=== PATIENT | male | born 1955 | race Hispanic/Latino ===

== ENCOUNTER → 2017-02-11 | Outpatient (CLI) | payer OTHER ==
[2017-02-11 09:29] LABS: ALBUMIN 3.5 g/dL (3.5-5.0); BILIRUBIN,TOTAL 0.4 mg/dL (0.2-1.0); CREATININE 1.1 mg/dL (0.5-1.5); POTASSIUM 3.5 mmol/L (3.5-5.1); THYROID STIMULATING HORMONE 6.99 uIU/mL (0.36-3.74); TOTAL PROTEIN, SERUM 7.4 g/dL (6.0-8.3)
== END | disposition home or self-care (01) ==
LOC: LAB 08:35
PROVIDERS: ATTEND Family Medicine
DX: E03.9 Hypothyroidism, unspecified (principal)
CPT/HCPCS: 36415; 80053; 80061; 84439; 84443

== ENCOUNTER → 2020-07-19 | Outpatient (CLI) | payer OTHER ==
[2020-07-19 14:49] LABS: EOSINOPHILS % (AUTO) 3.6 % (0.0-8.0); HEMATOCRIT 41.1 % (42-54); LYMPHOCYTES % (AUTO) 42.9 % (21.0-51.0); MEAN CORPUSCULAR HEMOGLOBIN 28.2 pg (27.0-33.0); MEAN CORPUSCULAR HGB CONC 32.8 g/dL (32.0-36.0); MONOCYTES % (AUTO) 5.6 % (3.0-13.0); NEUTROPHILS % (AUTO) 46.7 % (40.0-77.0); PLATELET COUNT (AUTO) 280 K/uL (130-400); RED BLOOD CELL COUNT(AUTO) 4.78 MIL/uL (4.50-6.20); RED CELL DISTRIBUTION WIDTH 13.2 % (11.0-15.5); WHITE BLOOD COUNT (AUTO) 9.1 K/uL (4.8-10.8)
[2020-07-19 15:03] LABS: HEMOGLOBIN A1C 6.1 % (4.0-6.0)
[2020-07-19 16:19] LABS: ALBUMIN 3.7 g/dL (3.5-5.0); BILIRUBIN,TOTAL 0.4 mg/dL (0.2-1.0); CREATININE 0.9 mg/dL (0.5-1.5); POTASSIUM 3.6 mmol/L (3.5-5.1); TOTAL PROTEIN, SERUM 7.9 g/dL (6.0-8.3)
== END | disposition home or self-care (01) ==
LOC: RAH 13:48
PROVIDERS: ATTEND Family Medicine
DX: U07.1 COVID-19 (principal); I51.7 Cardiomegaly
CPT/HCPCS: 36415; 71046; 80053; 80061; 82306; 82607; 82627; 83036; 84443; 85025

== ENCOUNTER → 2020-12-19 | Outpatient (CLI) | payer OTHER | END | disposition home or self-care (01) | LOC: RAH 10:13 | PROVIDERS: ATTEND Internal Medicine Critical Care Medicine | DX: J47.9 Bronchiectasis, uncomplicated (principal); J84.112 Idiopathic pulmonary fibrosis | CPT/HCPCS: 71250 ==

== ENCOUNTER 2021-01-25 08:47 | Emergency (ER) | payer OTHER ==
[~2021-01-25] VITALS: Ht 182.9 cm; Wt 124.7 kg
[2021-01-25 08:49] VITALS: BP 150/85
[2021-01-25] MEDS ORDERED: IBUP-2070 PO (09:19)
[2021-01-25] MEDS ORDERED: OCTYL 2-CYANOACRYLATE 1 EACH TP ONE (09:20)
[2021-01-25] MEDS ORDERED: TETANUS/DIPHTHERIA TOXOID [ADULT] 0.5 ML VIAL IM SCH (09:30)
== END 2021-01-25 10:08 | disposition home or self-care (01) ==
LOC: EDH 08:47
DX: S61.411A Laceration without foreign body of right hand, initial encounter (principal); Z79.1 Long term (current) use of non-steroidal anti-inflammatories (NSAID); W18.39XA Other fall on same level, initial encounter; Y93.89 Activity, other specified; Y92.89 Other specified places as the place of occurrence of the external cause; Y99.8 Other external cause status
CPT/HCPCS: 12001; 73030; 73120; 90471; 90714

== ENCOUNTER → 2021-08-08 | Outpatient (CLI) | payer OTHER ==
[~2021-08-08] MED LIST: GADOTERATE MEGLUMINE 10 MMOL/20 ML VIAL IV ONE; IBUP-2070 PO
[2021-08-08 09:47] LABS: BASOPHILS % (AUTO) 0.9 % (0.0-5.0); EOSINOPHILS % (AUTO) 5.6 % (0.0-8.0); HEMATOCRIT 44.9 % (42-54); LYMPHOCYTES % (AUTO) 33.1 % (21.0-51.0); MEAN CORPUSCULAR HEMOGLOBIN 29.2 pg (27.0-33.0); MEAN CORPUSCULAR HGB CONC 33.2 g/dL (32.0-36.0); MEAN CORPUSCULAR VOLUME 87.9 fL (79-99); MONOCYTES % (AUTO) 5.7 % (3.0-13.0); NEUTROPHILS % (AUTO) 54.4 % (40.0-77.0); PLATELET COUNT (AUTO) 277 K/uL (130-400); RED BLOOD CELL COUNT(AUTO) 5.11 MIL/uL (4.50-6.20); RED CELL DISTRIBUTION WIDTH 12.9 % (11.0-15.5); WHITE BLOOD COUNT (AUTO) 8.8 K/uL (4.8-10.8)
[2021-08-08 09:58] LABS: HEMOGLOBIN A1C 5.7 % (4.0-6.0)
[2021-08-08 10:14] LABS: ALBUMIN 3.7 g/dL (3.5-5.0); BILIRUBIN,TOTAL 0.5 mg/dL (0.2-1.0); CREATININE 1.1 mg/dL (0.5-1.5); POTASSIUM 3.8 mmol/L (3.5-5.1); THYROID STIMULATING HORMONE 2.36 uIU/mL (0.36-3.74); TOTAL PROTEIN, SERUM 7.8 g/dL (6.0-8.3)
== END | disposition home or self-care (01) ==
LOC: RAH 08:20
PROVIDERS: ATTEND Family Medicine
DX: M47.812 Spondylosis without myelopathy or radiculopathy, cervical region (principal); M51.26 Other intervertebral disc displacement, lumbar region
CPT/HCPCS: 36415; 72156; 72157; 80053; 80061; 83036; 84439; 84443; 84481; 85025; 86376; A9575

== ENCOUNTER → 2021-08-09 | Outpatient (CLI) | payer OTHER | LOC: RAH 12:27 | PROVIDERS: ATTEND Family Medicine | DX: M47.816 Spondylosis without myelopathy or radiculopathy, lumbar region (principal); M46.96 Unspecified inflammatory spondylopathy, lumbar region; M48.061 Spinal stenosis, lumbar region without neurogenic claudication | CPT/HCPCS: 72158; A9575 ==

== ENCOUNTER → 2025-01-19 | Outpatient (CLI) | payer MEDICARE ==
[~2025-01-19] MED LIST changes: -GADOTERATE MEGLUMINE 10 MMOL/20 ML VIAL IV ONE; +IBUP-1492 PO; -IBUP-2070 PO
--- NOTE | 2025-01-19 16:44 | HMCSR ---
APPROVED REPORT EXAM: Two-dimensional and M-mode echocardiogram with Doppler and color Doppler. 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 2D Dimensions RVDd 4.4 cm LVEF(%) 50.0 (>50%) LVED Vol(simp.) 84.0 mL IVSd 0.9 (0.7-1.1cm) FS(%) 25 % LVES Vol(simp.) 40.0 mL LVDd 4.5 (3.8-5.6cm) LA (2D) 3.6 (1.6-4.0cm) LVEF(%, simp.) 53 % PWd 1.0 (0.7-1.1cm) Ao Root(2D) 3.7 (2.0-3.7cm) LA ESV INDEX (BP) 24.07 mL/m2 IVSs 1.3 cm LVOT diam 2.2 (1.8-2.4cm) LVDs 3.4 (2.5-4.0cm) IVC diam 1.0 cm PWs 1.1 cm Deformation Strain Apical 4 -16.0 % Apical 2 -12.5 % Apical 3 -19.6 % Global Strain -16.0 % M-Mode Dimensions LA (MM) 4.1 (1.6-4.0cm) Ao Root(MM) 3.6 (2.0-3.7cm) Aortic Valve AoV Vmax 1.7 m/s Ao Peak GR 11.6 mmHg LVOT Vmax 0.9 m/s AoV VTI 0.3 m Ao Mean GR 6.3 mmHg LVOT VTI 0.15 m FREDRICK (VMAX) 2.07 cm2 FREDRICK (VTI) 2.0 cm2 Mitral Valve MV E Vmax 67.6 cm/s DECEL Time 216 ms MV A Vmax 100.0 cm/s P 1/2 T 50 ms E/A ratio 0.7 MVA (PHT) 4.5 cm2 TDI E/E' Medial 10.9 E/E' Lateral 9.0 Medial E' Peak V 6.21 cm/s Lateral E' Peak V 7.48 cm/s Pulmonary Valve PV Vmax 1.4 m/s PV VTI 0.14 m PV Mean GR 3.2 mmHg PV Peak GR 7.7 mmHg Tricuspid Valve TR Vmax 3.8 m/s RAP (EST) 3 mmHg RVSP 63.7 mmHg TR Peak GR 60.7 mmHg Left Ventricle The left ventricle is normal size. There is normal left ventricular wall thickness. LVEF is 55-60%. Stage I diastolic dysfunction. Right Ventricle The right ventricle is mildly dilated. The right ventricular systolic function is normal. Atria The left atrium size is normal. The right atrium size is normal. Aortic Valve Aortic valve is trileaflet and opens well. No aortic regurgitation is present. There is no aortic valvular stenosis. Mitral Valve The mitral valve is mildly thickened There is mild mitral valve regurgitation noted. There is no mitral valve stenosis. Tricuspid Valve The tricuspid valve is normal in structure. There is mild tricuspid valve regurgitation noted by color Doppler. RVSP 64.0mHg. Pulmonic Valve Pulmonic valve is not well visualized. There is no pulmonic valvular regurgitation. Great Vessels The aortic root is normal in size. The IVC is normal in size and collapses >50% with inspiration. Pericardium There is no pericardial effusion. Other Information Quality : Adequate Conclusion The left ventricle is normal size. There is normal left ventricular wall thickness. LVEF is 55-60%. Stage I diastolic dysfunction. The right ventricle is mildly dilated. The right ventricular systolic function is normal. The left atrium size is normal. The right atrium size is normal. There is mild mitral valve regurgitation noted. There is mild tricuspid valve regurgitation noted by color Doppler. RVSP 64.0mHg. There is no pericardial effusion.
== END | disposition home or self-care (01) ==
LOC: RAH 11:00
PROVIDERS: ATTEND Internal Medicine Pulmonary Disease
DX: I08.1 Rheumatic disorders of both mitral and tricuspid valves (principal); I27.23 Pulmonary hypertension due to lung diseases and hypoxia; J98.4 Other disorders of lung; R09.02 Hypoxemia
CPT/HCPCS: 93306